=== PATIENT | female | born 1930 | race African-American/Black ===

== ENCOUNTER 2018-04-06 17:04 | Inpatient (IN) | payer OTHER ==
[~2018-04-06] VITALS: Ht 152.4 cm; Wt 108.9 kg
[2018-04-06] MEDS ORDERED: SODIUM CHLORIDE 0.9% 1,000 ML IV ONE (17:25)
[2018-04-06 18:26] LABS: BASOPHILS % 0.2 % (0.0-2.0); EOSINOPHILS % 0.7 % (0.0-5.0); HEMATOCRIT. 34.6 % (36.0-48.0); HEMOGLOBIN. 11.4 g/dL (12.0-16.0); MEAN CORPUSCULAR HEMOGLOBIN 28.8 pg (28.0-32.0); MEAN CORPUSCULAR VOLUME 87.3 fL (81.0-99.0); MEAN PLATELET VOLUME 8.8 fl (7.4-10.4); MONOCYTES % 6.6 % (2.0-8.0); NEUTROPHILS % 75.5 % (40.0-76.0); PLATELET 125 x1000/uL (130-400); RED BLOOD CELL COUNT 3.96 mill/uL (4.2-5.4); RED CELL DISTRIBUTION WIDTH 16.4 % (11.6-14.6)
[2018-04-06 18:31] LABS: CHLORIDE 89 mEq/L (98-107)
[2018-04-06 18:32] LABS: INR 1.2; PROTHROMBIN TIME 11.6 sec (9.1-11.1)
[2018-04-06 18:35] LABS: ETHANOL BLOOD < 10 mg/dL
[2018-04-06 18:40] LABS: CREATINE KINASE 191 IU/L (26-192)
[2018-04-06] MEDS ORDERED: DEXT 10% WATER 1,000 ML IV ONE (18:52)
[2018-04-06] MEDS ORDERED: DEXTROSE 50% WATER 50ML SYRINGE IV ONE ×2 (18:59→19:00)
[2018-04-06] MEDS ORDERED: DEXT 5%/0.9% NACL 1,000 ML IV ONE (20:30)
[2018-04-06] MEDS ORDERED: MAGNESIUM/ALUMINUM HYDROXIDE/SIMETHICONE 30ML UDC PO PRN (21:00)
[2018-04-06] MEDS ORDERED: DIPHENHYDRAMINE 50MG/ML VIAL IV PRN (21:00)
[2018-04-06] MEDS ORDERED: ACETAMINOPHEN 650MG/20.3ML UDC GT PRN (21:00)
[2018-04-06] MEDS ORDERED: DEXTROSE 50% WATER 50ML SYRINGE IV PRN (21:00)
[2018-04-06] MEDS ORDERED: IPRATROPIUM/ALBUTEROL 0.5-3(2.5)MG/3ML NEB INH PRN (21:00)
[2018-04-06] MEDS ORDERED: ACETAMINOPHEN 650MG SUPP PR PRN (21:00)
[2018-04-06] MEDS ORDERED: ACETAMINOPHEN 325MG TABLET PO PRN (21:00)
[2018-04-06] MEDS ORDERED: ONDANSETRON HCL 4MG/2ML VIAL IV PRN (21:00)
[2018-04-06 23:20] LABS: CLARITY URINE CLEAR (CLEAR); COLOR URINE YELLOW (YELLOW); KETONES URINE NEGATIVE (NEGATIVE); LEUKOCYTE ESTERASE URINE NEGATIVE (NEGATIVE); NITRITE URINE NEGATIVE (NEGATIVE); OCCULT BLOOD URINE NEGATIVE (NEGATIVE); PROTEIN URINE NEGATIVE (NEGATIVE); SPECIFIC GRAVITY URINE 1.009 (1.005-1.030); UROBILINOGEN URINE 0.2 E.U./dL (0.2-1.0)
[2018-04-06 23:31] LABS: *AMPHETAMINES SCREEN URINE NEGATIVE (NEGATIVE); *BARBITURATES SCREEN URINE NEGATIVE (NEGATIVE); *BENZODIAZEPINES SCREEN URINE NEGATIVE (NEGATIVE); *COCAINE SCREEN URINE NEGATIVE (NEGATIVE); METHADONE URINE SCREEN NEGATIVE (NEGATIVE)
[2018-04-06 23:32] LABS: CANNABINOID URINE SCREEN NEGATIVE (NEGATIVE); OPIATES URINE SCREEN NEGATIVE (NEGATIVE); PHENCYCLIDINE URINE SCREEN NEGATIVE (NEGATIVE)
[2018-04-06 23:38] VITALS: BP 99/41
[2018-04-07] VITALS (11 sets, daily range): BP systolic 99–122; BP diastolic 46–61
[2018-04-07] MEDS ORDERED: DEXT 5%/0.45% NACL 1000ML 1,000 ML IV SCH
[2018-04-07 07:26] LABS: CHLORIDE 89 mEq/L (98-107)
[2018-04-07] MEDS: BLOOD SUGAR DIAGNOSTIC STRIP TEST SCH ×3 (07:45→17:54)
[2018-04-07 07:46] LABS: PHOSPHORUS 4.5 mg/dL (2.5-4.9)
[2018-04-07 07:47] LABS: LDL CHOLESTEROL 55 mg/dL (5-100)
[2018-04-07 07:48] LABS: BASOPHILS % 0.2 % (0.0-2.0); EOSINOPHILS % 0.9 % (0.0-5.0); HEMATOCRIT. 33.9 % (36.0-48.0); HEMOGLOBIN. 11.3 g/dL (12.0-16.0); LYMPHOCYTES % 17.5 % (20.0-50.0); MEAN CORPUSCULAR HEMOGLOBIN 29.1 pg (28.0-32.0); MEAN CORPUSCULAR VOLUME 87.6 fL (81.0-99.0); MEAN PLATELET VOLUME 9.6 fl (7.4-10.4); MONOCYTES % 5.8 % (2.0-8.0); NEUTROPHILS % 75.6 % (40.0-76.0); PLATELET 129 x1000/uL (130-400); RED BLOOD CELL COUNT 3.87 mill/uL (4.2-5.4); RED CELL DISTRIBUTION WIDTH 16.2 % (11.6-14.6)
[2018-04-07 07:49] LABS: HDL CHOLESTEROL 33 mg/dL (40-59)
[2018-04-07] MEDS: INSULIN LISPRO 100 UNITS/ML SUBCUT SCH ×3 (08:00→17:58)
[2018-04-07] MEDS: DEXT 5%/0.9% NACL 1,000 ML IV SCH (08:58)
[2018-04-07] MEDS: SODIUM CHLORIDE 0.9% INJ 3ML FLUSH IVF SCH (14:00)
[2018-04-07] MEDS ORDERED: CALC0.253 PO (17:42)
[2018-04-07] MEDS ORDERED: CARV25TA47 PO (17:42)
[2018-04-07] MEDS ORDERED: CHOL100044 MT (17:42)
[2018-04-07] MEDS ORDERED: AMLO5TAB88 PO (17:42)
[2018-04-07] MEDS ORDERED: ALLO300T2 PO (17:42)
[2018-04-07] MEDS ORDERED: OMEP20TA15 PO (17:42)
[2018-04-07] MEDS ORDERED: LOSA25TA12 PO (17:42)
[2018-04-07] MEDS ORDERED: ASPI-1159 MT (17:42)
[2018-04-07] MEDS ORDERED: FURO40TA5 PO (17:42)
[2018-04-07] MEDS ORDERED: SIMV20TA6 PO (17:42)
[2018-04-08] VITALS (14 sets, daily range): BP systolic 95–121; BP diastolic 48–96
[2018-04-08 06:44] LABS: BASOPHILS % 0.1 % (0.0-2.0); EOSINOPHILS % 1.5 % (0.0-5.0); HEMATOCRIT. 33.6 % (36.0-48.0); HEMOGLOBIN. 11.2 g/dL (12.0-16.0); LYMPHOCYTES % 18.7 % (20.0-50.0); MEAN CORPUSCULAR HEMOGLOBIN 29.2 pg (28.0-32.0); MEAN CORPUSCULAR VOLUME 87.7 fL (81.0-99.0); MEAN PLATELET VOLUME 9.2 fl (7.4-10.4); MONOCYTES % 5.5 % (2.0-8.0); NEUTROPHILS % 74.2 % (40.0-76.0); PLATELET 131 x1000/uL (130-400); RED BLOOD CELL COUNT 3.83 mill/uL (4.2-5.4); RED CELL DISTRIBUTION WIDTH 16.3 % (11.6-14.6)
[2018-04-08 07:11] LABS: PHOSPHORUS 3.8 mg/dL (2.5-4.9)
[2018-04-08 07:14] LABS: T4 FREE 1.03 ng/dL (0.76-1.46)
[2018-04-08] MEDS: BLOOD SUGAR DIAGNOSTIC STRIP TEST SCH ×3 (07:30→17:04)
[2018-04-08] MEDS: INSULIN LISPRO 100 UNITS/ML SUBCUT SCH ×3 (08:00→18:01)
[2018-04-08] MEDS ORDERED: POTASSIUM CHLORIDE 20MEQ TABLET SR PO NR ×3 (09:30→16:00)
[2018-04-08] MEDS: DEXT 5%/0.9% NACL 1,000 ML IV SCH (13:32)
[2018-04-08] MEDS: SODIUM CHLORIDE 0.9% INJ 3ML FLUSH IVF SCH (14:00)
[2018-04-09 13:11] LABS: A/G RATIO 0.6 (0.7-1.7); ALBUMIN 2.6 g/dL (2.9-4.4); ALPHA-1-GLOBULIN 0.2 g/dL (0.0-0.4); ALPHA-2-GLOBULIN 0.9 g/dL (0.4-1.0); BETA GLOBULIN 1.2 g/dL (0.7-1.3); GLOBULIN TOTAL 4.3 g/dL (2.2-3.9); M-SPIKE Not Observed g/dL (Not Observed); TOTAL PROTEIN SERUM 6.9 g/dL (6.0-8.5)
== END 2018-04-08 20:40 | disposition short-term general hospital (02) | DRG 637 ==
LOC: ER 17:04 → 5EST 19:40 → ENRESERV 22:27 → 5EST 23:10
PROVIDERS: ADMIT Family Medicine; ATTEND Family Medicine
PROC: 5A09357 Assistance with Respiratory Ventilation, Less than 24 Consecutive Hours, Continuous Positive Airway Pressure (ICD-10-PCS; principal; 2018-04-07)
PROC: 5A09357 Assistance with Respiratory Ventilation, Less than 24 Consecutive Hours, Continuous Positive Airway Pressure (ICD-10-PCS; 2018-04-08)
DX: E11.649 Type 2 diabetes mellitus with hypoglycemia without coma (principal); G93.41 Metabolic encephalopathy; E43 Unspecified severe protein-calorie malnutrition; E87.1 Hypo-osmolality and hyponatremia; Z68.42 Body mass index [BMI] 45.0-49.9, adult; I13.0 Hypertensive heart and chronic kidney disease with heart failure and stage 1 through stage 4 chronic kidney disease, or unspecified chronic kidney disease; N17.9 Acute kidney failure, unspecified; I95.9 Hypotension, unspecified; E11.22 Type 2 diabetes mellitus with diabetic chronic kidney disease; D64.9 Anemia, unspecified; D69.6 Thrombocytopenia, unspecified; E86.0 Dehydration; N18.9 Chronic kidney disease, unspecified; E66.9 Obesity, unspecified; E78.5 Hyperlipidemia, unspecified; E87.6 Hypokalemia; I48.91 Unspecified atrial fibrillation; I50.9 Heart failure, unspecified; Z82.49 Family history of ischemic heart disease and other diseases of the circulatory system; Z83.3 Family history of diabetes mellitus; Z86.73 Personal history of transient ischemic attack (TIA), and cerebral infarction without residual deficits
CPT/HCPCS: 36415; 70450; 71045; 76770; 78580; 80048; 80053; 80061; 80305; 81003; 82270; 82533; 82550; 82962; 83735; 83880; 84100; 84155; 84165; 84439; 84443; 84481; 84484; 85025; 85379; 85610; 93005; 93306; 93970; 94660; 96361; 96374; 96375; 99285; G0482; J1815; J7030; J7042

== ENCOUNTER 2018-07-12 00:30 | Inpatient (IN) | payer OTHER ==
[~2018-07-12] VITALS: Ht 152.4 cm; Wt 100.3 kg
[~2018-07-12 00:30] MED LIST: ALLO300T2 PO; AMLO5TAB88 PO; ASPI-1159 MT; CALC0.253 PO; CARV25TA47 PO; CHOL100044 MT; FURO40TA5 PO; LOSA25TA12 PO; OMEP20TA15 PO; SIMV20TA6 PO
[2018-07-12] MEDS ORDERED: SODIUM CHLORIDE 0.9% 1,000 ML IV ONE (01:17)
[2018-07-12] MEDS ORDERED: ONDANSETRON HCL 4MG/2ML INJ IV STA (01:17)
[2018-07-12 02:16] LABS: BASOPHILS % 0.4 % (0.0-2.0); EOSINOPHILS % 1.3 % (0.0-5.0); HEMATOCRIT. 31.9 % (36.0-48.0); HEMOGLOBIN. 10.2 g/dL (12.0-16.0); LYMPHOCYTES % 18.3 % (20.0-50.0); MEAN CORPUSCULAR HEMOGLOBIN 30.1 pg (28.0-32.0); MEAN PLATELET VOLUME 9.6 fl (7.4-10.4); MONOCYTES % 4.4 % (2.0-8.0); NEUTROPHILS % 75.6 % (40.0-76.0); PLATELET 141 x1000/uL (130-400); RED BLOOD CELL COUNT 3.39 mill/uL (4.2-5.4); RED CELL DISTRIBUTION WIDTH 15.9 % (11.6-14.6)
[2018-07-12] MEDS ORDERED: SODIUM CHLORIDE 0.9% 1,000 ML IV NR (03:09)
[2018-07-12 03:23] LABS: INR 1.3; PROTHROMBIN TIME 12.7 sec (9.1-11.1)
[2018-07-12 05:11] VITALS: BP 95/42
[2018-07-12] MEDS ORDERED: ACETAMINOPHEN 325MG TABLET PO PRN (05:45)
[2018-07-12] MEDS ORDERED: CLONIDINE 0.1MG TABLET PO PRN (05:45)
[2018-07-12] MEDS ORDERED: HYDROCODONE/ACETAMINOPHEN 5/325MG TABLET PO PRN (05:45)
[2018-07-12] MEDS ORDERED: DOCUSATE SODIUM 100MG CAPSULE PO PRN (05:45)
[2018-07-12] MEDS ORDERED: ONDANSETRON HCL 4MG/2ML INJ IV PRN (05:45)
[2018-07-12] MEDS ORDERED: DEXTROSE 50% WATER 50ML SYRINGE IV PRN (06:00)
[2018-07-12] MEDS: BLOOD SUGAR DIAGNOSTIC STRIP TEST SCH ×4 (06:31→20:25)
[2018-07-12] MEDS: INSULIN LISPRO 100 UNITS/ML SUBCUT SCH ×4 (07:50→20:26)
[2018-07-12 08:00] VITALS: BP 103/40
[2018-07-12 09:54] VITALS: BP 103/40
[2018-07-12 12:00] VITALS: BP 106/38
[2018-07-12] MEDS: DEXT 5%/0.45% NACL 1000ML 1,000 ML IV SCH (15:45)
[2018-07-12 16:30] VITALS: BP 96/32
[2018-07-12 19:23] LABS: HEMATOCRIT 27.8 % (36.0-48.0)
[2018-07-12 20:00] VITALS: BP 106/51
[2018-07-13] VITALS (11 sets, daily range): BP systolic 91–115; BP diastolic 26–53
[2018-07-13] MEDS: DEXT 5%/0.45% NACL 1000ML 1,000 ML IV SCH (00:11)
[2018-07-13] MEDS: BLOOD SUGAR DIAGNOSTIC STRIP TEST SCH ×4 (06:40→20:58)
[2018-07-13] MEDS ORDERED: THROMBIN (BOVINE) 5000 UNITS/VIAL TOP ONE (07:19)
[2018-07-13] MEDS ORDERED: BUPIVACAINE HCL/PF 0.5% (5MG/ML) 10ML ONE (07:19)
[2018-07-13] MEDS ORDERED: LIDOCAINE HCL 1% 20ML VIAL (Pyxis) INJ ONE (07:19)
[2018-07-13] MEDS ORDERED: GELATIN SPONGE,ABSORBABLE 12-7MM SPONGE ONE (07:19)
[2018-07-13] MEDS ORDERED: HEPARIN SODIUM 1,000 UNIT/1ML VIAL IV ONE (07:20)
[2018-07-13] MEDS ORDERED: BACITRACIN 50,000 UNITS/VIAL ONE (07:20)
[2018-07-13] MEDS ORDERED: FENTANYL CITRATE/PF 50MCG/ML 2ML VIAL ONE (07:48)
[2018-07-13] MEDS ORDERED: PROPOFOL 200MG/20ML VIAL IV ONE (07:49)
[2018-07-13] MEDS: INSULIN LISPRO 100 UNITS/ML SUBCUT SCH ×3 (07:50→17:50)
[2018-07-13] MEDS ORDERED: LIDOCAINE HCL/PF 1% 10 MG/ML 5ML VIAL ONE (07:51)
[2018-07-13] MEDS ORDERED: ONDANSETRON HCL 4MG/2ML INJ ONE (07:51)
[2018-07-13 08:05] LABS: BASOPHILS % 0.3 % (0.0-2.0); EOSINOPHILS % 2.1 % (0.0-5.0); HEMATOCRIT. 24.3 % (36.0-48.0); HEMOGLOBIN. 7.8 g/dL (12.0-16.0); MEAN CORPUSCULAR HEMOGLOBIN 30.1 pg (28.0-32.0); MEAN CORPUSCULAR VOLUME 93.7 fL (81.0-99.0); MEAN PLATELET VOLUME 10.2 fl (7.4-10.4); MONOCYTES % 8.2 % (2.0-8.0); NEUTROPHILS % 60.4 % (40.0-76.0); PLATELET 116 x1000/uL (130-400); RED BLOOD CELL COUNT 2.59 mill/uL (4.2-5.4); RED CELL DISTRIBUTION WIDTH 15.7 % (11.6-14.6)
[2018-07-13 08:07] LABS: CHLORIDE 104 mEq/L (98-107)
[2018-07-13] MEDS ORDERED: PHENYLEPHRINE HCL 10 MG/ML 1ML (IV VIAL) IV ONE (08:08)
[2018-07-13 08:15] LABS: LDL CHOLESTEROL 49 mg/dL (5-100)
[2018-07-13 08:17] LABS: HDL CHOLESTEROL 35 mg/dL (40-59)
[2018-07-13 12:49] LABS: HEMATOCRIT 23.7 % (36.0-48.0); HEMOGLOBIN 7.7 g/dL (12.0-16.0)
== END 2018-07-14 00:05 | disposition short-term general hospital (02) | DRG 314 ==
LOC: ER 01:10 → 6WST 02:46 → EDBEDREQTM 02:49 → EDBEDREQ 02:49 → ENRESERV 04:02
PROVIDERS: ADMIT Hospitalist; ATTEND Hospitalist
PROC: 5A1D70Z Performance of Urinary Filtration, Intermittent, Less than 6 Hours Per Day (ICD-10-PCS; 2018-07-13)
PROC: B54NZZA Ultrasonography of Left Upper Extremity Veins, Guidance (ICD-10-PCS; 2018-07-13)
PROC: B34JZZZ Ultrasonography of Left Upper Extremity Arteries (ICD-10-PCS; 2018-07-13)
PROC: 30233N1 Transfusion of Nonautologous Red Blood Cells into Peripheral Vein, Percutaneous Approach (ICD-10-PCS; principal; 2018-07-13 07:30)
DX: T82.838A Hemorrhage due to vascular prosthetic devices, implants and grafts, initial encounter (principal); N18.6 End stage renal disease; I12.0 Hypertensive chronic kidney disease with stage 5 chronic kidney disease or end stage renal disease; Z68.41 Body mass index [BMI] 40.0-44.9, adult; M10.9 Gout, unspecified; I48.91 Unspecified atrial fibrillation; D64.9 Anemia, unspecified; R55 Syncope and collapse; E11.22 Type 2 diabetes mellitus with diabetic chronic kidney disease; I95.9 Hypotension, unspecified; E66.9 Obesity, unspecified; Z99.2 Dependence on renal dialysis
CPT/HCPCS: 36415; 36430; 80048; 80061; 82962; 85014; 85018; 86850; 86900; 86920; 93005; 93970; 96360; 96361; 99291; J1644; J2370; J2405; J2704; J3010; J3490; J7030; P9016